=== PATIENT | female | born 1930 | race Caucasian/White ===

== ENCOUNTER 2017-01-06 09:13 | Observation (INO) | payer OTHER ==
[~2017-01-06] VITALS: Ht 157.5 cm; Wt 63.5 kg
[2017-01-06] MEDS ORDERED: SODIUM CHLORIDE 0.9% 1,000 ML IVB ONE (10:01)
[2017-01-06 11:00] LABS: Basophils # (auto) 0 uL; Eosinophils # (auto) 0 uL; Hematocrit 46.9 % (36.0-46.0); Hemoglobin 15.6 g/dL (12.2-16.2); Lymphocytes # (auto) 1.2 uL; Lymphocytes % (auto) 9.1 % (10.0-50.0); Mean Corpuscular Hemoglobin 30.9 pg (28.0-32.0); Mean Corpuscular Hgb Conc. 33.3 g/dL (32.0-36.0); Mean Corpuscular Volume 92.8 fL (80.0-100.0); Mean Platelet Volume 7.8 fL (7.4-10.4); Monocytes # (auto) 1.1 uL; Monocytes % (auto) 8.6 % (0.0-12.0); Neutrophils # (auto) 10.8 uL; Neutrophils % (auto) 82.3 % (37.0-80.0); Platelet Count (auto) 236 10^3/uL (140-450); Red Cell Distribution Width 14.1 % (11.6-16.0); White Blood Cell 13.1 10^3/uL (4.4-10.8)
[2017-01-06 11:44] LABS: Albumin 3.1 g/dL (3.4-5.0); Calcium 7.9 mg/dL (8.5-10.1); Magnesium 3.5 mg/dL (1.6-2.6); Potassium 4.5 mmol/L (3.5-5.1); Total Protein 7.6 g/dL (6.4-8.2)
[2017-01-06] MEDS ORDERED: metroNIDAZOLE 500MG/100ML 100 ML IV ONE (12:15)
[2017-01-06] MEDS ORDERED: FLEET MINERAL OIL ENEMA 133 ML PR ONE (12:15)
[2017-01-06 17:03] VITALS: BP 108/91
== END 2017-01-06 17:39 | disposition short-term general hospital (02) | DRG 391 ==
LOC: ER 09:13 → EDBD 09:13 → OVERFLOW 10:04 → ER 17:39
PROVIDERS: ADMIT Emergency Medicine; ATTEND Emergency Medicine
DX: K52.9 Noninfective gastroenteritis and colitis, unspecified (principal); K85.90 Acute pancreatitis without necrosis or infection, unspecified; E11.21 Type 2 diabetes mellitus with diabetic nephropathy; E83.41 Hypermagnesemia; K64.4 Residual hemorrhoidal skin tags; K56.41 Fecal impaction; I10 Essential (primary) hypertension; I48.91 Unspecified atrial fibrillation; E03.9 Hypothyroidism, unspecified; K57.90 Diverticulosis of intestine, part unspecified, without perforation or abscess without bleeding
CPT/HCPCS: 36415; 71010; 74176; 80053; 83690; 83735; 84443; 85025; 87493; 93005; 96361; 96365; 99285; G0378; J3490; J7030